=== PATIENT | female | born 1995 | race Caucasian/White ===

== ENCOUNTER 2019-02-26 17:59 | Emergency (ER) | payer SELFPAY ==
[2019-02-26 18:09] VITALS: BP 115/74
--- NOTE | 2019-02-26 18:10 | UC ---
Complaint Female HPI - HPI Summary HPI Summary: 23 yo female presents with UTI symptoms. She tells me that she has a hx of UTIs - most recently was about 2 months ago and was treated with keflex and had full resolution of her symptoms. Last night she noticed some urinary frequency and burning. Today had increased bladder pressure and discomfort. Denies abdominal pain, n/v, flank pain, fever or chills. No vaginal bleeding or discharge. - History Of Current Complaint Chief Complaint: UCGU Stated Complaint: URINARY COMPLAINT Time Seen by Provider: 02/26/19 18:10 Hx Obtained From: Patient Hx Last Menstrual Period: 1 week Onset/Duration: Sudden Onset Severity Initially: Mild Severity Currently: Mild Pain Intensity: 1 Pain Scale Used: 0-10 Numeric - Allergies/Home Medications Allergies/Adverse Reactions: Allergies Allergy/AdvReac Type Severity Reaction Status Date / Time No Known Allergies Allergy Verified 02/26/19 18:09 PMH/Surg Hx/FS Hx/Imm Hx - Additional Past Medical History Additional PMH: None - Surgical History Surgical History: None - Family History Known Family History: Positive: Non-Contributory - Social History Occupation: Student Lives: Dormitory/Roommates Alcohol Use: Occasionally Substance Use Type: None Smoking Status (MU): Never Smoked Tobacco Review of Systems All Other Systems Reviewed And Are Negative: No Constitutional: Positive: Negative Skin: Positive: Negative Respiratory: Positive: Negative Cardiovascular: Positive: Negative Gastrointestinal: Positive: Negative Genitourinary: Positive: Dysuria Neurological: Positive: Negative Psychological: Positive: Negative Physical Exam - Summary Physical Exam Summary: GENERAL: NAD. WDWN. No pain distress. SKIN: No rashes, sores, lesions, or open wounds. NECK: Supple. Nontender. No lymphadenopathy. CHEST: CTAB. No r/r/w. No accessory muscle use. Breathing comfortably and in no distress. CV: RRR. Without m/r/g. Pulses intact. Cap refill <2seconds ABDOMEN: Soft. NTTP. No distention or guarding. No CVA tenderness. Bowel sounds present NEURO: Alert. PSYCH: Age appropriate behavior. Triage Information Reviewed: Yes Vital Signs: Initial Vital Signs Temp 98.5 F 02/26/19 18:04 Pulse 87 02/26/19 18:04 Resp 16 02/26/19 18:04 BP 115/74 02/26/19 18:04 Pulse Ox 100 02/26/19 18:04 Laboratory Tests 02/26/19 02/26/19 18:24 18:26 POC Urine Color Yellow POC Urine Clarity Clear POC Urine pH 6.0 POC Ur Specif [place] <= 1.005 L POC Urine Protein Negative POC Ur Glucose (UA) Negative POC Urine Ketones Negative POC Urine Blood Negative POC Urine Nitrite Positive A POC Urine Bilirubin Negative POC Urine Urobilinogen 0.2 POC U Leukocyte Esteras 1+ A POC Ur Test Negative Vital Signs Reviewed: Yes Complaint Female Dx - Course Course Of Treatment: UA positive. Last urine culture grew e coli with sens to all. Rx for bactrim - Differential Dx/Diagnosis Provider Diagnosis: UTI (urinary tract infection) Discharge ED - Sign-Out/Discharge Documenting (check all that apply): Patient Departure All imaging exams completed and their final reports reviewed: No Studies - Discharge Plan Condition: Stable Disposition: HOME Prescriptions: Sulfamethox/Trimethoprim DS* [Bactrim DS 800/160 TAB*] 1 tab PO BID #10 tab Patient Education Materials: Urinary Tract Infection in Women (ED) Referrals: No Primary Care Phys,NOPCP [Primary Care Provider] - Additional Instructions: If you develop a fever, shortness of breath, chest pain, new or worsening symptoms - please call your PCP or go to the ED immediately. - Billing Disposition and Condition Condition: STABLE Disposition: Home
--- NOTE | 2019-02-28 14:58 | UC ---
- Progress Note Progress Note: Urine culture final with no growth, but pt had a strong positive UA at visit and hx of many UTIs. Please call pt and if doing better - continue anbx If not better - recommend to be rechecked Course/Dx - Diagnoses Provider Diagnoses: UTI (urinary tract infection) Discharge ED - Sign-Out/Discharge Documenting (check all that apply): Post-Discharge Follow Up All imaging exams completed and their final reports reviewed: No Studies - Discharge Plan Condition: Stable Disposition: HOME Prescriptions: Sulfamethox/Trimethoprim DS* [Bactrim DS 800/160 TAB*] 1 tab PO BID #10 tab Patient Education Materials: Urinary Tract Infection in Women (ED) Referrals: No Primary Care Phys,NOPCP [Primary Care Provider] - Additional Instructions: If you develop a fever, shortness of breath, chest pain, new or worsening symptoms - please call your PCP or go to the ED immediately. - Billing Disposition and Condition Condition: STABLE Disposition: Home
== END 2019-02-26 18:40 | disposition home or self-care (01) ==
LOC: UCEAST 17:59
DX: N39.0 Urinary tract infection, site not specified (principal)
CPT/HCPCS: 81003; 84702; 87086; 99212; G0463

== ENCOUNTER 2019-05-11 20:46 | Observation (INO) | payer SELFPAY ==
--- NOTE | 2019-05-11 21:05 | ED ---
Abdominal Pain/Female - HPI Summary HPI Summary: Patient complains of new onset epigastric pain starting this morning. Pain described as dull baseline pain at 3/10 with spikes rated at 8/10. Not made worse with eating. Associated persistent nausea. Patient took Tums with little relief. Denies fever, cough, sore throat, CP, SOB, V/D, change in urine , vaginal symptoms, change in BM. Patient states she was evaluated for possible Crohn's disease recently by GI in [place] with a negative colonoscopy and endoscopy. Patient does not mention any biopsy results. States she was placed on omeprazole by GI after scoping. Has been taking omeprazole for 2 weeks. Denies abdominal surgical history. - History of Current Complaint Chief Complaint: EDAbdPain Stated Complaint: STOMACH PAIN PER PT Time Seen by Provider: 05/11/19 21:03 Hx Obtained From: Patient Hx Last Menstrual Period: 1 week Onset/Duration: Sudden Onset, Lasting Hours Timing: Constant Severity Initially: Severe Severity Currently: Severe Pain Intensity: 7 Pain Scale Used: 0-10 Numeric Location: Epigastric Radiates: No Character: Sharp, Dull Aggravating Factor(s): Nothing Alleviating Factor(s): Nothing Associated Signs and Symptoms: Positive: Decreased Appetite, Nausea Allergies/Adverse Reactions: Allergies Allergy/AdvReac Type Severity Reaction Status Date / Time No Known Allergies Allergy Verified 05/11/19 20:52 Home Medications: Home Medications Calcium Carbonate CHEW TAB* [Tums*] 500 - 1,000 mg PO Q6H PRN 05/11/19 [History Confirmed 05/11/19] Pantoprazole TAB * [Protonix TAB*] 40 mg PO DAILY 05/11/19 [History Confirmed ] PMH/Surg Hx/FS Hx/Imm Hx Endocrine/Hematology History: Denies: Hx Anticoagulant Therapy Cardiovascular History: Denies: Hx Pacemaker/ICD History: Denies: Hx Dialysis Sensory History: Denies: Hx Eye Prosthesis Opthamlomology History: Denies: Hx Legally Blind EENT History: Denies: Hx Deafness Neurological History: Denies: Hx Dementia - Cancer History Cancer Type, Location and Year: ibs,uti's Infectious Disease History: No Infectious Disease History: Denies: Traveled Outside the [place] in Last 30 Days - Family History Known Family History: Positive: Non-Contributory - Social History Alcohol Use: None Substance Use Type: Reports: None Smoking Status (MU): Never Smoked Tobacco Review of Systems Constitutional: Negative Eyes: Negative ENT: Negative Cardiovascular: Negative Respiratory: Negative Positive: Abdominal Pain, Nausea Genitourinary: Negative Musculoskeletal: Negative Skin: Negative Neurological: Negative Psychological: Normal All Other Systems Reviewed And Are Negative: Yes Physical Exam - Summary Physical Exam Summary: Patient tender in epigastric area and right lower quadrant. Abdominal exam otherwise normal. Triage Information Reviewed: Yes Vital Signs On Initial Exam: Initial Vitals Temp Pulse Resp BP Pulse Ox 98.9 F 105 16 111/92 100 05/11/19 20:50 05/11/19 20:50 05/11/19 20:50 05/11/19 20:50 05/11/19 20:50 Vital Signs Reviewed: Yes Appearance: Positive: Well-Appearing Skin: Positive: Warm Head/Face: Positive: Normal Head/Face Inspection Eyes: Positive: Normal Neck: Positive: Supple Respiratory/Lung Sounds: Positive: Clear to Auscultation Cardiovascular: Positive: Normal Abdomen Description: Positive: Other: Musculoskeletal: Positive: Normal Neurological: Positive: Normal Psychiatric: Positive: Normal AVPU Assessment: Alert - [place] Coma Scale Best Eye Response: 4 - Spontaneous Best Motor Response: 6 - Obeys Commands Best Verbal Response: 5 - Oriented Coma Scale Total: 15 Procedures - Sedation Patient Received Moderate/Deep Sedation with Procedure: No Diagnostics - Vital Signs Vital Signs Temp Pulse Resp BP Pulse Ox 05/11/19 20:50 98.9 F 105 16 111/92 100 - Laboratory Result Diagrams: 05/11/19 21:17 05/11/19 21:17 Lab Statement: Any lab studies that have been ordered have been reviewed, and results considered in the medical decision making process. Abdominal Pain Fem Course/Dx - Course Course Of Treatment: Patient complains of new onset epigastric pain starting this morning. Pain described as dull baseline pain at 3/10 with spikes rated at 8/10. Not made worse with eating. Associated persistent nausea. Patient took Tums with little relief. Denies fever, cough, sore throat, CP, SOB, V/D, change in urine, vaginal symptoms, change in BM. Patient states she was evaluated for possible Crohn's disease recently by GI in [place] with a negative colonoscopy and endoscopy. Patient does not mention any biopsy results. States she was placed on omeprazole by GI after scoping. Has been taking omeprazole for 2 weeks. Denies abdominal surgical history. Vital signs within normal limits. Labs unremarkable. CT abdomen and pelvis positive for small bowel obstruction due to terminal ileitis likely infectious with Crohn's disease also considered. Consider follow-up colonoscopy. Patient admitted to hospitalist. - Diagnoses Provider Diagnoses: Terminal ileitis, SBO (small bowel obstruction) Discharge ED - Sign-Out/Discharge Documenting (check all that apply): Patient Departure All imaging exams completed and their final reports reviewed: No - Discharge Plan Condition: Stable Disposition: HOME - Billing Disposition and Condition Condition: STABLE Disposition: Home
[2019-05-11] MEDS ORDERED: Ondansetron INJ* 2 MG/ML VIAL IV ONE (21:11)
[2019-05-11] MEDS ORDERED: Morphine 4 MG/ML VIAL (1 ml) 4 MG/ML VIAL IV ONE ×3 (21:11→23:41)
[2019-05-11] MEDS ORDERED: NS 0.9% 1000 ML** 1,000 ML IV ONE (21:11)
[2019-05-11 21:32] LABS: ABS Eosinophils 0.1 10^3/ul (0-0.6); ABS Lymphocytes 1.4 10^3/ul (1.0-4.8); ABS Monocytes 0.6 10^3/ul (0-0.8); ABS Neutrophils 7.4 10^3/ul (1.5-7.7); Eosinophil % 1.5 %; Hematocrit 41 % (35-47); Hemoglobin 14.3 g/dL (12.0-16.0); Lymphocyte % 14.6 %; Mean Corpuscular HGB Conc 35 g/dL (31-36); Mean Corpuscular Hemoglobin 31 pg (27-31); Mean Corpuscular Volume 89 fL (80-97); Mean Platelet Volume 9.3 fL (7.4-10.4); Platelet Count 223 10^3/uL (150-450); Red Blood Count 4.59 10^6 /uL (3.70-4.87); Red Cell Distribution Width 12 % (10-15); White Blood Count 9.6 10^3/uL (3.5-10.8)
[2019-05-11 21:48] LABS: ALT 10 U/L (7-52); AST 14 U/L (13-39); Albumin 4.2 g/dL (3.2-5.2); Albumin/Globulin Ratio 1.4 (1-3); Alkaline Phosphatase 50 U/L (34-104); Anion Gap 8 mmol/L (2-11); BUN/Creatinine Ratio 11.4 (8-20); Blood Urea Nitrogen 12 mg/dL (6-24); C Reactive Protein 4.85 mg/L (<8.01); CO2 Carbon Dioxide 25 mmol/L (22-32); Calcium 9.3 mg/dL (8.6-10.3); Chloride 105 mmol/L (101-111); EGFR African American 78.6 (>60); EGFR Non-African American 64.9 (>60); Glucose 94 mg/dL (70-100); Potassium 3.7 mmol/L (3.5-5.0); Sodium 138 mmol/L (135-145); Total Protein 7.2 g/dL (6.4-8.9)
[2019-05-11] MEDS ORDERED: Iohexol 300* (CONTRAST) 10 ML SDV IV ONE (21:58)
[2019-05-11 22:03] LABS: HCG Pregnancy < 0.60 mIU/mL
[2019-05-12] MEDS ORDERED: Ondansetron INJ* 2 MG/ML VIAL IV PRN (00:23)
[2019-05-12] MEDS ORDERED: Morphine INJ* 4 MG/ML 1 ML SYRINGE (NEW SYRINGE VERSION) IV PRN (00:23)
[2019-05-12] MEDS ORDERED: Piperacillin/Tazobac ADVAN(*) 3.375 GM in NS 0.9% 100 ML* 100 ML IVPB ONE (00:56)
[2019-05-12] MEDS ORDERED: Zosyn per Pharmacy* NOTE FOLLOW UP SCH (01:00)
[2019-05-12] MEDS: NS 0.9% w/ 20 Meq KCL 1000 ML* 1,000 ML IV SCH ×3 (01:08→23:01)
[2019-05-12] MEDS: methylPREDNISolone SOD 40 MG* 1 ML VIAL IV SCH ×2 (01:41→09:22)
[2019-05-12 02:01] LABS: Urine Appearance Clear; Urine Bilirubin Negative (Negative); Urine Blood Negative (Negative); Urine Color Yellow; Urine Glucose Negative (Negative); Urine Ketones 1+ (Negative); Urine Nitrite Negative (Negative); Urine Protein Negative (Negative); Urine Specific Gravity 1.051 (1.010-1.030); Urine Urobilinogen Negative (Negative)
[2019-05-12] MEDS: ZOSYN 3.375 GM Q8H per EXTENDED INFUSION IVPB SCH ×6 (04:39→20:46)
--- NOTE | 2019-05-12 05:25 | HP ---
ADMISSION HISTORY AND PHYSICAL: DATE OF ADMISSION: 05/12/19 CHIEF COMPLAINT: Abdominal pain. HISTORY OF PRESENT ILLNESS: Ms. Berg is a 23-year-old woman with at least a 3 -year history of abdominal discomfort, who developed severe epigastric pain in the a.m. of day of admission. She states the pain waxed and waned and would hit her about every 4 to 5 minutes throughout the day, but worsened suddenly also over the days' time. She has had some nausea but no vomiting. She has had normal bowel movement earlier today with no diarrhea or hematochezia. The patient reports that she has had diarrhea and abdominal pain intermittently for approximately 3 years. She was living in [place], but then moved to [place] within the last year. In [place], she saw a pharmacy assistant where she had an endoscopy and colonoscopy in early March. She was told that these are normal and that she has excess acids in her stomach. She was started on Protonix at that time. The patient also reports history of endometriosis but this typically presents for her with lower abdominal pain. She was started on oral contraceptive pills about 1 month ago for this. PAST MEDICAL HISTORY: Includes gastritis and endometriosis. PAST SURGICAL HISTORY: None. MEDICATIONS: On admission: 1. Calcium carbonate as needed in the form of Tums. 2. Protonix 40 mg p.o. q. day. 3. control pill 1 tab daily, skipping the placebo pills. ALLERGIES: None. FAMILY HISTORY: Notable for sister with endometriosis. Mother has diverticulosis and hypertension. Father of non-Hodgkin's lymphoma. SOCIAL HISTORY: She moved to [place] within the last week to be with her boyfriend. She is taking master of social work classes online from her previous location. She lives with her boyfriend. She has no children. She denies tobacco use. Denies alcohol use. Denies drug use. REVIEW OF SYSTEMS: The patient denies any fever, weight loss, anorexia. The patient denies any chest pain or palpitations. The patient denies any cough, hemoptysis, or shortness of breath. She states that her bowel pattern over the last few years has been diarrhea up to 6 times per week. Since starting the Protonix, she has cut down to about 3 times a week of diarrhea. She denies any diarrhea today. Remainder of 14-point review of systems is negative other than mentioned in the HPI. PHYSICAL EXAMINATION GENERAL: She is a well-appearing young woman, in no acute distress. VITAL SIGNS: Temperature is 37.2, pulse 81, respirations 16, blood pressure is 114/75, O2 sat 98%. HEENT: Head is normocephalic, atraumatic. Sclerae anicteric. Pupils equal, round, reactive to light and accommodation. Oropharynx is moist. No lesions. NECK: No JVD. No carotid bruits. No thyromegaly. LUNGS: Clear to auscultation and percussion bilaterally. HEART: Regular rate and rhythm without murmurs or gallops. ABDOMEN: Soft. Tender in the epigastric and right lower quadrant area. There is no rebound. No masses. Positive bowel sounds. EXTREMITIES: No peripheral edema. Dorsalis pedis pulses are 2+ bilaterally. NEUROLOGIC: Cranial nerves II through XII are intact. Motor strength is 5/5 throughout. Deep tendon reflexes are symmetric. DIAGNOSTIC STUDIES/LAB DATA: Sodium 138, potassium 3.7, chloride 105, bicarb 25, BUN 12, creatinine 1.05, glucose 94, calcium 9.3. AST 14, ALT 10. HCG is negative. Lipase is 10. White count 9.6, hemoglobin 14.3, hematocrit 41%, and platelets 223. CT abdomen and pelvis shows terminal ileitis with standard loops of small bowel proximally consistent with small bowel obstruction. ASSESSMENT AND PLAN: A 23-year-old woman, who is presenting with terminal ileitis and clinically partial small bowel obstruction. Differential would include bacterial ileitis versus Crohn's disease or endometriosis which could be invading the bowel. Given the 3-year history of the problem she may have celiac disease, irritable bowel as a background. The patient will be admitted to observation, she certainly does not look toxic, but we will empirically start her on Zosyn for possible bacterial enteritis. I am also starting her on IV Solu-Medrol for probable Crohn's disease. Tomorrow, we can obtain records from her previous pharmacy assistant in [place] to help elucidate the picture fully. She will need Gastroenterology consult here and further workup as indicated. If she has diarrhea, we will send stools for bacterial and parasitic cultures, Giardia, and inflammation such as fecal lactoferrin. Code status is full. For DVT prophylaxis, we will use sequential compression devices. She is at moderate risk due to her probable inflammatory bowel disease as well as control pills. [id number]/[facility] #: [id number] [facility]
--- NOTE | 2019-05-12 10:30 | PN ---
Subjective Date of Service: 05/12/19 Interval History: Patient seen resting in bed. Stated that her pain has been intermittent, currently in minimal pain which she describes as diffuse in her whole abdomen. Denies nausea or vomiting. States she feels better than yesterday, though is negative for flatus. Family History: Unchanged from Admission Social History: Unchanged from Admission Past Medical History: Unchanged from Admission Objective Active Medications: Potassium Chloride/Sodium Chloride (Ns 0.9% W/ 20 Meq Kcl 1000 Ml*) 1,000 mls @ 100 mls/hr IV PER RATE [facility] Last Admin: 05/12/19 01:08 Dose: 100 mls/hr Piperacillin Sod/Tazobactam (Sod 3.375 gm/ Sodium Chloride) 100 mls @ 25 mls/ hr IVPB Q8H [facility] Last Admin: 05/12/19 04:39 Dose: 25 mls/hr Methylprednisolone Sodium Succinate (Solu-Medrol 40 Mg) 40 mg IV Q8H [facility] Last Admin: 05/12/19 09:22 Dose: 40 mg Morphine Sulfate (Morphine Inj (Syringe)*) 4 mg IV Q3H PRN PRN Reason: PAIN - SEVERE Ondansetron HCl (Zofran Inj*) 4 mg IV Q6H PRN PRN Reason: NAUSEA Pantoprazole Sodium (Protonix Iv*) 40 mg IV DAILY [facility] Pharmacy Consult (Zosyn Per Pharmacy*) 1 note FOLLOW UP .ZOSYN PER PHARMACY [facility] Vital Signs - 8 hr 05/12/19 05/12/19 05/12/19 03:57 07:22 09:15 Temperature 98.6 F 97.8 F Pulse Rate 74 58 Respiratory 17 16 16 Rate Blood Pressure 116/61 93/74 (mmHg) O2 Sat by Pulse 99 98 Oximetry Oxygen Devices in Use Now: None Appearance: This is a well developed young woman in no acute distress. Eyes: No Scleral Icterus, PERRLA Ears/Nose/Mouth/Throat: NL Teeth, Lips, Gums, Clear Oropharnyx, Mucous Membranes Moist Neck: NL Appearance and Movements; NL JVP Respiratory: Symmetrical Chest Expansion and Respiratory Effort, Clear to Auscultation Cardiovascular: NL Sounds; No Murmurs; No JVD, RRR, No Edema Abdominal: - - Abdomen soft, non-distended, tender to palpation to right lower quadrant. Active +BSx4. Lymphatic: No Cervical Adenopathy Extremities: No Edema, No Clubbing, Cyanosis Skin: No Rash or Ulcers, No Nodules or Sclerosis Neurological: Alert and Oriented x 3 Lines/Tubes/Other Access: Clean, Dry and Intact Peripheral IV Result Diagrams: 05/11/19 21:17 05/11/19 21:17 Assess/Plan/Problems-Billing Assessment: This is a 23 year old female with a past medical history significant for gastritis and endometriosis admitted on 05/11/19 for small bowel obstruction secondary to an inflammatory process. - Patient Problems (1) Small bowel obstruction Current Visit: Yes Status: Acute Code(s): K56.609 - UNSP INTESTNL OBST, UNSP TO PARTIAL VERSUS COMPLETE OBST SNOMED Code(s): 442304784 Comment: -Small bowel obstruction near terminal ilum per CT. Patient is negative for flatus, though non-distended, denies nausea. Will continue with NPO status though allow for occasional sips of clear liquids. Encourage ambulation. Ordered protonix and stool cultures. -Consult GI. Patient had an endoscopy/colonoscopy last month in [place], requested records from facility. It is a possibility this could be caused due to endometriosis. Crohns is included in the differential. (2) Endometriosis Current Visit: Yes Status: Acute Code(s): N80.9 - ENDOMETRIOSIS, UNSPECIFIED SNOMED Code(s): 274663326 Comment: -Recently placed on a different control. Will hold this until she is taking PO. (3) DVT prophylaxis Current Visit: Yes Status: Acute Code(s): Z29.9 - ENCOUNTER FOR PROPHYLACTIC MEASURES, UNSPECIFIED SNOMED Code(s): 101254033 Comment: -Moderate risk. SCD's and lovenox. (4) Full code status Current Visit: Yes Status: Acute Code(s): Z78.9 - OTHER SPECIFIED HEALTH STATUS SNOMED Code(s): 047092674 Status and Disposition: Condition: Guarded Disposition: Admit OBV to [facility]. Attending: Susanna Umaña
[2019-05-12] MEDS: Enoxaparin(*) 40 MG/0.4 ML SYR SUBCUT SCH (11:51)
--- NOTE | 2019-05-12 18:34 | CONS ---
CONSULTATION REPORT: DATE OF CONSULT: 05/12/19 REQUESTING PHYSICIAN: Dr. Brooke. INDICATION: Abdominal pain. HISTORY OF PRESENT ILLNESS: Ms. Berg is a very pleasant 23-year-old female who was admitted to the hospital yesterday. She states over the past 3 years she has had a mild abdominal discomfort and some occasional loose stools. She did see a intellectual property paralegal while living in [place] earlier this year. She underwent both an EGD and colonoscopy on 03/31/19. The colonoscopy was normal including the terminal ileum. Biopsies were normal. She also had an upper endoscopy, which revealed mild erosive esophagitis and antral gastritis. The patient was started on proton pump inhibitor and she started to feel better. On Sunday, she developed severe abdominal pain; she is unsure as to why. It did come and go, but it was colicky in nature. It was located throughout the entirety of the abdomen. She felt nauseated, but never vomited. She denied any recent change in her stool pattern. She presented to the emergency room. CT showed terminal ileitis. She was admitted to the hospital for possible infectious versus inflammatory ileitis. At this point, she is feeling 95% better. She states that she has a slight twinge of pain located in the right lower quadrant, but feels much better. She is hungry. PAST MEDICAL HISTORY: 1. Endometriosis. 2. Gastritis. PAST SURGICAL HISTORY: None. MEDICATIONS: Upon admission include: 1. Protonix 40 mg a day. 2. Calcium. ALLERGIES: None. FAMILY HISTORY: Endometriosis, diverticulosis, non-Hodgkin's lymphoma. SOCIAL HISTORY: No tobacco. No alcohol. She recently relocated to [place] from [place]. PHYSICAL EXAMINATION: On physical exam, temperature is 97.9, blood pressure is 114/59, pulse is 64, respiratory rate of 16. General: Well-appearing female, in no apparent distress, alert, oriented, pleasant. HEENT: Mucous membranes are moist without lesions, ulcers, or exudate. Neck is supple. Trachea is midline. Head is normocephalic, atraumatic. Heart: Regular rate and rhythm. Lungs: Clear to auscultation. Abdomen: Positive bowel sounds, soft, nontender , nondistended. No hepatosplenomegaly, masses, rebound, or guarding. Skin is warm and dry, positive tattoos. DIAGNOSTIC STUDIES/LAB DATA: Labs: Of note, her white count and CBC are normal. Chemistry panel shows a creatinine of 1.05, lipase of less than 10. CT abdomen and pelvis, which showed terminal ileal thickening and small-bowel distention. ASSESSMENT AND PLAN: This is a very pleasant 23-year-old female admitted with nausea, abdominal pain, and a CT showing terminal ileitis. Most likely cause for her terminal ileitis would be an infectious etiology, viral more likely than bacterial. Another possibility would include inflammatory bowel disease, namely, Crohn disease. However, the patient did just have 6 weeks ago both an EGD and colonoscopy and the ileum was normal back then. I do not think she has Crohn disease; I think this is more of an infectious etiology. I would recommend we stop the steroids and continue with the antibiotics. For right now , I would like to feed her. If she is feeling better than today by tomorrow, I think she can be discharged with close followup with [facility]. [id number]/[facility] #: [id number] [place]
[2019-05-13] MEDS: ZOSYN 3.375 GM Q8H per EXTENDED INFUSION IVPB SCH ×2 (04:53)
[2019-05-13 07:22] VITALS: BP 93/52
[2019-05-13] MEDS ORDERED: Pantoprazole IV* 40 MG IV SCH (09:00)
[2019-05-13] MEDS: Enoxaparin(*) 40 MG/0.4 ML SYR SUBCUT SCH (10:28)
[2019-05-13 16:24] LABS: Tissue Transglutaminase IgA Ab <1.2 U/mL
--- NOTE | 2019-05-13 21:55 | DS ---
CC: [facility] * DISCHARGE SUMMARY: DATE OF ADMISSION: 05/12/19 DATE OF DISCHARGE: 05/13/19 PRIMARY CARE PROVIDER: To establish at [facility] on 05/20/19. PRINCIPAL DIAGNOSIS: Terminal ileitis - likely infectious. DISCHARGE MEDICATIONS: 1. Protonix 40 mg p.o. daily. 2. Tums 500 to 1000 mg p.o. q.6 hours p.r.n. indigestion. 3. Augmentin 500 mg p.o. b.i.d. x10 more doses. HOSPITAL COURSE: Ms. Berg is a 23-year-old female who presented to the emergency room on 05/12/19 with complaints of abdominal pain. The patient has had intermittent diarrhea and abdominal pain for approximately 3 years. She previously was living in [place] and while there, saw a electrical wiring lineman where she had endoscopy and colonoscopy in early March. These were reportedly normal. She was started on Protonix at that time for her complaints. She subsequently moved to [place] and again had a bout of abdominal pain. CT scan was performed in the emergency room which revealed terminal ileitis. The patient was seen in consultation by Dr. Allen from Gastroenterology. It was felt that the most likely cause for her terminal ileitis was infectious, viral more likely than bacterial; however, he recommended continuing a course of antibiotics. She had been started on steroids thinking that perhaps this was Crohn's. Given her negative EGD and colonoscopy just last month, it was felt that this was unlikely. She was started on a full liquid diet; however, the night prior to discharge, ate a piece of pizza which she tolerated just fine. She is very anxious to be discharged home today. On the day of discharge, the patient is awake, alert, and oriented, sitting up in bed, in no acute distress. Cardiac exam reveals a normal S1 and S2 with a regular rate and rhythm. Lungs are clear. Abdomen is soft, nondistended and mildly tender in the right lower quadrant. The patient at this point is tolerating a diet and her pain is much less. She will be discharged home to complete 5 more days of Augmentin. She is off steroids at this point. The patient has been recommended to follow up with Dr. Allen in 4 to 6 weeks. Additionally, the patient will establish with the [facility] on 05/20/19 at 9 a.m. FOLLOWUP CONCERNS: The patient is being discharged home today, 05/13/19. Activity level is as tolerated. Diet is regular as tolerated. CONDITION ON DISCHARGE: Stable. Pending labs at the time of this dictation are celiac panel. TIME SPENT: Twenty five minutes were spent discharging this patient. [id number]/CPS #: [id number]
[2019-05-13 22:44] LABS: Immunoglobulin A 288 mg/dL (61 - 356)
== END 2019-05-13 10:30 | disposition home or self-care (01) ==
LOC: ED 20:46 → SSU 05-12 00:22
PROVIDERS: ADMIT Internal Medicine; ATTEND Hospitalist
DX: K56.609 Unspecified intestinal obstruction, unspecified as to partial versus complete obstruction (principal); K50.00 Crohn's disease of small intestine without complications; N80.9 Endometriosis, unspecified; K29.70 Gastritis, unspecified, without bleeding; Z79.899 Other long term (current) drug therapy
CPT/HCPCS: 36415; 74177; 80053; 81003; 82784; 83690; 84702; 85025; 86140; 96361; 96365; 96366; 96375; 96376; 99284; G0378; J2270; J2405; J2543; J2920; Q9967